=== PATIENT | female | born 2000 | race Caucasian/White ===

== ENCOUNTER 2025-02-12 18:20 | Emergency (ER) | payer SELFPAY ==
[2025-02-12 18:22] VITALS: BP 125/78; PULSE 91; RESP 18; TEMP 36.8; O2SAT 97
--- NOTE | 2025-02-12 18:34 | ED_ITS ---
HPI - URI/Sore Throat General Chief Complaint: Upper Respiratory Infection Stated Complaint: chest congestion Time Seen by Provider: 02/12/25 18:34 Source: patient, RN notes reviewed and old records reviewed Mode of arrival: ambulatory Limitations: no limitations History of Present Illness HPI Narrative: 24 year old female who presents to [facility] with complaints of being congested for a week with past 3 days having increased cough with some dyspnea with exertion and wheezing. Patient has been taking Mucinex for her symptoms with no relief. Patient reports that she has not had any ear pain or any sore throat or any body aches. Patient reports that she has history of MD elicited complaint: cough and sore throat Related Data Allergies Allergy/AdvReac Type Severity Reaction Status Date / Time amoxicillin Allergy Unknown Rash Verified 02/12/25 18:29 Review of Systems Review of Systems: CONSTITUTIONAL: reports malaise, denies chills, sweats, or fever. EYES: Denies visual changes, redness, or discharge. ENT: Reports rhinorrhea, congestion, sinus pain, no otalgia and no sore throat. CARDIOVASCULAR: Denies chest pain, palpitations, or edema. RESPIRATORY: Reports acute cough with wheezing.? Reports dyspnea with exertion GASTROINTESTINAL: Denies abdominal pain, nausea, vomiting, diarrhea SKIN: Denies rash or itching. MUSCULOSKELETAL: Denies myalgia. NEUROLOGIC: Denies headache. All systems reviewed & are unremarkable except as noted in HPI and below PMFSH Past Medical History Medical History (Updated 02/13/25 @ 19:46 by Ariella Jasso APRN) Asthma reports as child Closed left arm fracture Surgical History Surgical History (Updated 02/13/25 @ 19:44 by Ariella Jasso APRN) History of tonsillectomy and adenoidectomy Social History Social History (Updated 02/13/25 @ 19:43 by Ariella Jasso APRN) Tobacco type: e-cigarettes/vaping Alcohol intake: current Alcohol use details: social Gender identity (if verbalized by the patient): Female Comments At time of signature, agree with nursing past medical, surgical, social and family history. There is no relevant family history pertinent to the presenting complaint Exam Narrative: GENERAL: Well-appearing, well-nourished, and in no acute distress. HEAD: Normocephalic EYES: PERRLA, conjunctivae clear ENT: Nares clear, turbinates edematous and erythematous, clear discharge. Mucous membranes moist. TM pearly garcia with dull light reflex bilaterally; no tragal tenderness. Oropharynx erythematous without lesions. Tonsils not present and throat without exudate, no drooling, no hoarseness, no trismus, uvula midline.post nasal drinage noted NECK: Supple. No lymphadenopathy CHEST: Scattered wheezing throughout lung dee on auscultation, breath sounds equal.+ wheezing,no rhonchi, no rales, or stridor. No respiratory distress, speaks in full sentences.frequent cough noted no retraction and no tachypnea, SAO2 97% on room air HEART: Regular rate and rhythm. No murmur heard. SKIN: Warm, dry, no rash. NEURO: Alert and oriented x3. PSYCH: Normal mood and affect Course Course Emergency Course: Patient is aware of diagnosis, understands and agrees to treatment plan.? Anticipatory guidance given.? Patient agrees to follow-up as directed and is aware of reasons to seek care at the emergency department. Portions of this record may have been created with voice recognition software Level of Care: Express Care Visit Vital Signs Vital signs: Vital Signs Temperature 36.8 C 02/12/25 18:22 Pulse Rate 91 02/12/25 18:22 Respiratory Rate 18 02/12/25 18:22 Blood Pressure 125/78 02/12/25 18:22 Pulse Oximetry 97 02/12/25 18:22 Oxygen Delivery Room Air 02/12/25 18:22 Temperature 36.8 C 02/12/25 18:22 Pulse Rate 91 02/12/25 18:22 Respiratory Rate 18 02/12/25 18:22 Blood Pressure 125/78 02/12/25 18:22 Pulse Oximetry 97 02/12/25 18:22 Oxygen Delivery Room Air 02/12/25 18:22 Reviewed MDM - URI/Sore Throat MDM Narrative Medical decision making narrative: Differential diagnosis considered: Greene virus, strep pharyngitis, allergic rhinitis, upper respiratory tract infection, sinusitis, rhinosinusitis, nasopharyngitis. viral pharyngitis, otitis media, otitis externa, pneumonia, bronchitis, viral cough syndrome, viral syndrome, and influenza.? Exam findings show no acute concerns or changes; patient is non-toxic appearing and is in no distress.? Patient is appropriate for outpatient treatment and follow-up. Differential Diagnosis Differential diagnosis: Likely upper respiratory infection, sinusitis, viral infection, bronchitis and other (acute cough and congestion) Medical Records Attestation: I reviewed the patient's medical records. Lab Data Attestation: I reviewed the patient's lab results. Lab results narrative: urine negative Labs: Lab Results 02/12/25 Range/Units 19:06 POC Urine HCG, Qual Negative (Negative) reviewed Critical Care Time Critical Care Time Critical Care Time: No Discharge Plan Discharge Clinical Impression: Acute bronchitis Qualifiers: Bronchitis organism: unspecified organism Qualified Code(s): J20.9 - Acute bronchitis, unspecified Patient Disposition: Home Condition: Stable Instructions: Antibiotic Form, Acute Bronchitis (ED) Additional Instructions: Increase fluids especially juices and water [id number] cough and cold medicine of your choice for your symptoms Zyrtec Claritin or Lolis daily Tylenol or Ibuprofen for any pain or any fever Continue your inhaler/nebulizer as directed Steroids as directed--take with food heat to the face 20-30 minutes 4-6 times a day for pain Salt water gargles, throat lozenges or throat sprays as desired Antibiotic as directed--finish the medication If your symptoms persist, change or worsen significantly before you can contact your personal physician then please, without delay, go to the emergency department for further evaluation. Follow-up with PCP in 7-10 days or sooner if needed Patient Language: Sammarinese Prescriptions: New albuterol sulfate [Ventolin HFA] 90 mcg/actuation HFA aerosol inhaler 2 puff inhalation QID PRN (Reason: shortness of breath or wheezing) Qty: 8.5 0RF Rx Instructions: whatever is most economical azithromycin 250 mg tablet See Rx Instructions .ROUTE .COMPLEX Qty: 6 0RF Rx Instructions: For 250 mg dose pack: take 500 mg today (day 1), then 250 mg for 4 days (days 2-5) prednisone 20 mg tablet 40 mg PO DAILY Qty: 10 0RF Rx Instructions: for 5 days take in the morning with food Follow-up/Referrals: Reza,MAXWELL Gil[place] [Primary Care Provider] Time of Disposition: 18:52 Quality Barker Coma Scale Eyes: Open Verbal: Oriented and Alert Motor: Follows Commands Levi Coma Total Score: 15
[2025-02-12 19:08] LABS: BEDSIDEPREGUCG Negative (Negative)
== END 2025-02-12 19:01 | disposition home or self-care (01) ==
PROVIDERS: Emergency Provider Registered Nurse; PCP Physician Assistant
DX: J20.9 Acute bronchitis, unspecified (principal); F17.290 Nicotine dependence, other tobacco product, uncomplicated
CPT/HCPCS: 81025; 99203; G0463